=== PATIENT | female | born 1985 | race American Indian/Alaskan Native ===

== ENCOUNTER 2017-09-13 22:03 | Inpatient (IN) | payer MEDICAID ==
[2017-09-13] MEDS ORDERED: LACTATED RINGERS 1,000 ML IV ONE (22:44)
[2017-09-13 23:16] LABS: Hematocrit 31.8 % (30.3-42.9); Hemoglobin 10.5 gm/dl (10.1-14.3); Mean Corpuscular HGB Conc 33 % (30-34); Mean Corpuscular Volume 75 fl (79-97); Platelet Count 299 K/mm3 (140-440); Red Blood Count 4.24 M/mm3 (3.65-5.03); Red Cell Distribution Width 14.5 % (13.2-15.2)
[2017-09-13 23:19] LABS: Mean Corpuscular Hemoglobin 25 pg (28-32)
[2017-09-13 23:29] LABS: Bacteria,Urine 2+ /HPF (Negative); Bilirubin,Urine NEG (Negative); Blood,Urine NEG (Negative); Calcium Oxalate Crystals,Urine 1+; Color,Urine Yellow (Yellow); Mucus,Urine 2+ /HPF
[2017-09-13 23:35] LABS: Alanine Aminotransferase 8 units/L (7-56)
[2017-09-13 23:50] LABS: Uric Acid 3.5 mg/dL (3.5-7.6)
[2017-09-14] MEDS ORDERED: BRETHINE SUB-Q PRN (00:32)
[2017-09-14] MEDS ORDERED: MINERAL OIL PO PRN (00:32)
[2017-09-14] MEDS ORDERED: BRETHINE IVP PRN (00:32)
[2017-09-14] MEDS ORDERED: MAGNESIUM SULFATE 4GM/100ML 4 GM/100 ML BAG IV ONE ×2 (00:32→00:40)
[2017-09-14] MEDS ORDERED: ePHEDrine SULFATE IV PRN (00:32)
[2017-09-14] MEDS ORDERED: ZOFRAN IV PRN ×2 (00:32→10:28)
[2017-09-14] MEDS ORDERED: SUBLIMAZE IV PRN (00:32)
[2017-09-14] MEDS ORDERED: APRESOLINE IV PRN (00:32)
[2017-09-14] MEDS ORDERED: XYLOCAINE 2% INFILTRATI ONE (00:32)
--- NOTE | 2017-09-14 00:37 | History and Physical Report ---
History of Present Illness Date of examination: 09/14/17 Date of admission: 09/14/17 00:01 Chief complaint: Severe Headaches History of present illness: Pt is a 32yo BF EDC 10/17/17; EGA 35 2/7 weeks presents to L&D complaining of severe headaches and RUQ pain. On admission her BP is elevated 159/101 and she is also iraj q 3-4 mins. She received late care at [facility] since 23 weeks and course has been unremarkable except for elevated RGS with normal 3 OGTT, and previous C Section x 2. records are available and GBS was not yet done. Past History Past Medical History: no pertinent history Past Surgical History: section (x2) [employer] History: herpes, trichomonas Family/Genetic History: none Social history: no significant social history, single - Obstetrical History Expected Date of Delivery: 10/17/17 Actual Gestation: 35 Week(s) 2 Day(s) : 4 Medications and Allergies Allergies Allergy/AdvReac Type Severity Reaction Status Date / Time amoxicillin [Amoxicillin] AdvReac Rash Verified 11/28/12 02:53 Home Medications Medication Instructions Recorded Confirmed Last Taken Type Hydrocodone Bit/Acetaminophen 1 tab PO Q4-6H PRN #12 tablet 11/28/12 Unknown Rx [Lortab 5-500 Tablet] Sulfamethoxazole/Trimethoprim 1 tab PO Q12H #14 tablet 11/28/12 Unknown Rx [Bactrim Ds] Nitrofurantoin [place]/M-Cryst 100 mg PO Q12HR #20 capsule 10/21/13 Unknown Rx [Macrobid] Ondansetron [Zofran] 4 mg PO Q6HR PRN #30 tablet 10/21/13 Unknown Rx Pnv with Ca,No.72/Iron/FA 1 each PO DAILY #30 tablet 10/21/13 09/13/17 10:00 Rx [ Plus Multivitamin Tab] 1 tablet Promethazine [Phenergan] 25 mg PO Q6H PRN #20 tablet 12/15/13 Unknown Rx Butalb/Acetaminophen/Caffeine 1 cap PO Q6HR PRN #20 cap 02/02/15 Unknown Rx [Fioricet 50-300-40 mg CAP] Review of Systems All systems: negative - Vital Signs Vital signs: Vital Signs Pulse BP 90 159/101 09/13/17 22:35 09/13/17 22:35 Temp Pulse Resp BP Pulse Ox 98.7 F 87 18 163/92 99 09/13/17 22:43 09/14/17 00:38 09/13/17 22:43 09/14/17 00:22 09/14/17 00:38 - Physical Exam Breasts: Positive: deferred Cardiovascular: Regular rate Lungs: Positive: Clear to auscultation Abdomen: Positive: normal appearance, soft Genitourinary (Female): Positive: normal external genitalia Uterus: Positive: enlarged Extremities: Positive: normal - Obstetrical FHR: category 1 Uterine Contraction Monitor Mode: External Cervical Dilatation: 1 (per nurse) Cervical Effacement Percentage: 50 (per nurse) Uterine Contraction Pattern: Irregular Uterine Tone Measurement Phase: Contraction Uterine Contraction Intensity: Mild Results Result Diagrams: 09/13/17 22:45 09/13/17 22:45 Abnormal lab results 09/13/17 09/13/17 09/13/17 Range/Units 22:45 22:45 22:45 MCV 75 L (79-97) fl MCH 25 L (28-32) pg Creatinine 0.5 L (0.7-1.2) mg/dL Lactate Dehydrogenase 208 H (91-180) units/L Urine WBC (Auto) 22.0 H (0.0-6.0) /HPF U Epithel Cells (Auto) 16.0 H (0-13.0) /HPF All other labs normal. Assessment and Plan - Patient Problems (1) 35 weeks gestation of Onset Date: 09/14/17 Current Visit: Yes Status: Acute Plan to address problem: A: IUP @ 35 2/7 weeks Severe preeclampsia Previous C Section P: Admit to L&D for evaluation of Preeclampsia Will begin IV Magnesium sulfate and IV Hydralazine Will deliver by C Section if severe symptoms persists Obtain records in the morning (2) Pre-eclampsia during in third trimester, antepartum Onset Date: 09/14/17 Current Visit: Yes Status: Acute (3) Previous section Onset Date: 09/14/17 Current Visit: Yes Status: Acute
[2017-09-14] MEDS ORDERED: MAGNESIUM SULFATE 40GM/1000ML 40 GM/1,000 ML BAG IV ONE (00:40)
[2017-09-14] MEDS: LACTATED RINGERS 1,000 ML IV SCH ×3 (01:00→08:31)
[2017-09-14] MEDS ORDERED: PITOCin/NS 30 UNIT/500ML 30 UNITS/500 ML BAG IV SCH (01:00)
[2017-09-14] MEDS ORDERED: PITOCin/NS 20 UNIT/1000ML DRIP 20 UNITS/1,000 ML BAG IV SCH ×3 (01:00→13:00)
[2017-09-14] MEDS: MAGNESIUM SULFATE 40GM/1000ML 40 GM/1,000 ML BAG IV SCH (01:41)
[2017-09-14] MEDS ORDERED: TYLENOL PO ONE (05:05)
[2017-09-14] MEDS ORDERED: REGLAN IV ONE (08:45)
[2017-09-14] MEDS ORDERED: BICITRA PO ONE (08:45)
[2017-09-14] MEDS ORDERED: PEPCID IV ONE (08:45)
[2017-09-14] MEDS ORDERED: GARAMYCIN 120 MG in NACL 0.9% 100 ML IV SCH (08:45)
[2017-09-14] MEDS ORDERED: LACTATED RINGERS 1,000 ML IV SCH (09:00)
[2017-09-14] MEDS ORDERED: CLEOCIN 600 MG/50 mL 600 MG/50 ML BAG IV NR (09:00)
[2017-09-14 09:35] LABS: Alanine Aminotransferase 8 units/L (7-56)
[2017-09-14] MEDS ORDERED: PHENERGAN PR PRN (10:28)
[2017-09-14] MEDS ORDERED: NARCAN 0.4 MG/1 ML IV PRN ×2 (10:28→12:36)
[2017-09-14] MEDS ORDERED: PHENERGAN PO PRN (10:28)
--- NOTE | 2017-09-14 10:28 | Anesthesia Consultation ---
Anesthesia Consult and Med Hx Date of service: 09/14/17 - Airway Anesthetic Teeth Evaluation: Good ROM Head & Neck: Adequate Mental/Hyoid Distance: Adequate Mallampati Class: Class II Intubation Access Assessment: Good - Pulmonary Exam CTA: Yes - Cardiac Exam Cardiac Exam: RRR - Pre-Operative Health Status ASA Pre-Surgery Classification: ASA3 - Pulmonary Hx Asthma: Yes - Cardiovascular System Hx Hypertension: Yes - Central Nervous System Hx Seizures: No Hx Psychiatric Problems: No - Endocrine Hx Renal Disease: No Hx Hypothyroidism: No Hx Hyperthyroidism: No - Hematic Hx Anemia: No Hx Sickle Cell Disease: No - Other Systems Hx Alcohol Use: No - Additional Comments Anesthesia Medical History Comments: Preeclampsia
[2017-09-14] MEDS ORDERED: NACL 0.9% IR ONE (10:35)
[2017-09-14] MEDS ORDERED: WATER FOR IRRIG STERILE IR ONE (10:35)
[2017-09-14] MEDS ORDERED: MORPHINE ONE (10:45)
[2017-09-14] MEDS ORDERED: GARAMYCIN/NS 120MG/100ML 120 MG/100 ML BAG IV ONE (11:00)
[2017-09-14] MEDS ORDERED: fentaNYL-BUPIV 2 MCG/ML-0.125% 200 MCG/100 ML BAG EPIDURAL SCH (11:00)
[2017-09-14] MEDS ORDERED: SODIUM CHLORIDE FLUSH SYRINGE 10 ML IV NR ×2 (11:00→13:00)
[2017-09-14] MEDS ORDERED: TORADOL ONE (11:11)
--- NOTE | 2017-09-14 12:31 | Operative Report ---
Operative Report Operative Report: Date of procedure: 09/14/2017 Pre-operative diagnosis: 1. Intrauterine at 35-2/7 weeks 2. Severe preeclampsia 3. Previous 2 4. contractions 5. Desires permanent sterilization Post-operative diagnosis: Same with extensive lower uterine adhesions Procedure name(s): 1. Repeat low transverse section 2. Bilateral tubal ligation Surgeon: Osman Salas MD Nurse Prn: None Anesthesia: Spinal anesthesia by Dr. Wilde EBL: 800 mls Findings: A 2655 g male Apgars 8 at 1 minute and 8 at 5 minutes. Clear amniotic fluid. Normal uterus with extensive lower uterine adhesions. Normal tubes and ovaries bilaterally. Procedure: After the patient was prepped and draped in usual sterile fashion, and after satisfactory level of epidural anesthesia was obtained, the skin knife was used to make a transverse skin incision through the previous skin scar. The incision was excised down to layer of the fascia, which was nicked in the midline and extended laterally using the Bovie cautery. The rectus muscles were dissected off the rectus fascia both superiorly and inferiorly. The rectus bellies in the midline, and the peritoneum was entered under direct visualization. The peritoneal incision was extended superiorly and inferiorly. Extensive lower uterine adhesions were taken down using both sharp and blunt dissection. A bladder flap was created and the bladder blade was then placed. The uterus was scored in a curvilinear linear fashion, entered in the midline revealing clear amniotic fluid. The infant's head was delivered onto the surgical field, and the oropharynx and nasopharynx were bulb suctioned. The rest of the 's body was delivered, cord was doubly clamped and cut and the was handed to the waiting respiratory team. Cord blood was then obtained. The placenta was manually removed from the uterus , and the uterus removed from its normal anatomical position. After gentle uterine lavage, the incision was inspected and found to be without extensions. It was then closed in 2 layers using 0 Vicryl suture in a running interlocking fashion, the second layer imbricating the first. Attention was then turned to the tubal ligation. First the right fallopian tube was grasped using a [place] and the Fil[place]ie clip was applied to the proximal portion of the tube. The same procedure was performed on the left fallopian tube. The left fallopian tube was grasped using a [place] and the Filshie clip was applied to the proximal portion of the tube. After good hemostasis was achieved, copious amounts or irrigation was performed, and the gutters were suctioned free of blood and blood clots. The Tisseel sealant was sprayed across the uterine incision. The uterus was then returned to its normal anatomical position, and after excellent hemostasis assured, the peritoneum was re-approximated using 3-0 Vicryl suture in a running interlocking fashion, and then the rectus muscles were re- approximated using 3-0 Vicryl suture in a vconur-af-hatid configuration. The fascia was then re-approximated using 0 Vicryl suture in running interlocking fashion. The subcutaneous layer was made hemostatic using Bovie cautery, the Tisseel sealant was sprayed across the fascial incision and the skin edges re- approximated using 4-0 Vicryl suture in a sub-cuticular fashion. Patient tolerated the procedure well was transported to recovery in stable condition.
[2017-09-14] MEDS ORDERED: TUCKS PAD TP PRN (12:36)
[2017-09-14] MEDS ORDERED: NORCO 5/325 PO PRN (12:36)
[2017-09-14] MEDS ORDERED: LANSINOH TP PRN (12:36)
[2017-09-14] MEDS ORDERED: MYLICON PO PRN (12:36)
[2017-09-14] MEDS ORDERED: SENOKOT PO PRN (12:36)
[2017-09-14] MEDS ORDERED: TORADOL IV PRN (12:36)
[2017-09-14] MEDS ORDERED: MILK OF MAGNESIA PO PRN (12:36)
[2017-09-14] MEDS: BENADRYL IV PRN (12:44)
[2017-09-14] MEDS ORDERED: D5LR 1,000 ML IV SCH (13:00)
[2017-09-14] MEDS: CLEOCIN 600 MG/50 mL 600 MG/50 ML BAG IV SCH (16:44)
[2017-09-15 00:55] LABS: Hematocrit 26.7 % (30.3-42.9); Hemoglobin 9.1 gm/dl (10.1-14.3)
[2017-09-15] MEDS: BENADRYL IV PRN (00:55)
[2017-09-15] MEDS: MAGNESIUM SULFATE 40GM/1000ML 40 GM/1,000 ML BAG IV SCH (00:57)
[2017-09-15] MEDS: CLEOCIN 600 MG/50 mL 600 MG/50 ML BAG IV SCH (00:58)
--- NOTE | 2017-09-15 11:24 | Progress Note ---
Assessment and Plan - Patient Problems (1) 35 weeks gestation of Onset Date: 09/14/17 Current Visit: Yes Status: Resolved (2) Pre-eclampsia during in third trimester, antepartum Onset Date: 09/14/17 Current Visit: Yes Status: Resolved (3) Previous section Onset Date: 09/14/17 Current Visit: Yes Status: Resolved (4) Status post Onset Date: 09/15/17 Current Visit: Yes Status: Resolved Plan to address problem: A: S/P Repeat C Section with BTL - POD #1 Doing well Preeclampsia - improved - still on IV Magnesium sulfate P: Continue RPOC Will D/C IV Magnesium sulfate and begin PO Labetolol Anticipate discharge in 24-48hrs Subjective - Subjective Date of service: 09/15/17 Principal diagnosis: s/p Repeat C Section with BTL - POD #1 Interval history: Pt is feeling better with only a slight headache. Bleeding improved. Still on IV Magnesium sulfate. Patient reports: appetite normal, voiding normally, pain well controlled, no flatus, no ambulating normally, no nauseated : doing well, nursing well, bottle feeding Objective - Vital Signs Latest vital signs: Vital Signs Temp Pulse Resp BP BP Pulse Ox 09/15/17 10:22 133/88 09/15/17 07:51 98.1 F 90 14 144/96 96 09/15/17 06:10 98.0 F 82 20 136/84 09/15/17 04:00 98.2 F 87 20 133/86 09/15/17 02:30 98.6 F 76 20 138/83 09/15/17 00:50 98 H 17 134/64 98 09/15/17 00:40 89 20 121/76 99 09/15/17 00:30 100 H 18 129/70 100 09/15/17 00:20 102 H 24 131/75 99 09/15/17 00:10 102 H 22 133/70 100 09/15/17 00:00 98.2 F 95 H 22 125/73 138/87 100 09/14/17 23:53 103 H 09/14/17 20:00 98.2 F 100 H 20 132/82 09/14/17 15:14 98.6 F 91 H 16 131/87 100 09/14/17 13:56 97.4 F L 85 16 136/93 100 09/14/17 13:20 82 15 143/80 99 09/14/17 13:15 79 22 142/88 100 09/14/17 13:10 84 16 145/85 97 09/14/17 13:05 85 21 135/83 100 09/14/17 13:00 79 13 138/86 99 09/14/17 12:56 90 12 138/87 99 09/14/17 12:55 97.8 F 86 12 138/87 09/14/17 12:50 82 14 133/89 100 09/14/17 12:45 79 14 139/89 99 09/14/17 12:40 84 16 130/84 09/14/17 12:35 76 25 H 128/83 100 09/14/17 12:30 77 29 H 123/83 100 09/14/17 12:24 30 H 121/85 82 L 09/14/17 12:18 77 20 128/84 100 09/14/17 12:12 87 26 H 112/73 100 Intake and Output 09/14/17 09/15/17 09/15/17 22:59 06:59 14:59 Intake Total 1050 240 Output Total 700 1600 Balance 350 -1360 Intake: IV 1050 CLEOCIN 600 MG/50 mL 600 50 mg In 50 ml @ 100 mls/hr IV Q8H ROMEO Rx#:[id number] MAGNESIUM SULFATE 40GM/ 1000 1000ML 40 gm In 1,000 ml @ 2 GM/HR 50 mls/hr IV DIRECT ROMEO Rx#:[id number] Oral 240 Output: Urine 700 1600 Indwelling Catheter 700 1600 Other: Total, Intake Amount 240 Total, Output Amount 700 800 - Exam Breasts: Present: deferred Cardiovascular: Present: Regular rate Abdomen: Present: normal appearance, soft Uterus: Present: normal, firm, fundal height below umbilicus Extremities: Present: normal Incision: Present: normal, dry, intact, dressed - Labs Labs: Abnormal lab results 09/14/17 09/15/17 09/15/17 Range/Units 20:29 00:24 00:24 Hgb 9.1 L (10.1-14.3) gm/dl Hct 26.7 L (30.3-42.9) % Magnesium 5.40 H 5.60 H (1.7-2.3) mg/dL 09/15/17 Range/Units 07:35 Hgb (10.1-14.3) gm/dl Hct (30.3-42.9) % Magnesium 5.70 H (1.7-2.3) mg/dL Laboratory Tests 09/13/17 09/13/17 09/13/17 22:45 22:45 22:45 WBC 6.9 RBC 4.24 Hgb 10.5 Hct 31.8 MCV 75 L MCH 25 L MCHC 33 RDW 14.5 Plt Count 299 Creatinine 0.5 L Estimated GFR > 60 Uric Acid 3.5 Magnesium AST 15 ALT 8 Lactate Dehydrogenase 208 H Urine Color Yellow Urine Turbidity Slightly-cloudy Urine pH 6.0 Ur Specific [place] 1.016 Urine Protein 30 mg/dl Urine Glucose (UA) Neg Urine Ketones Neg Urine Blood Neg Urine Nitrite Neg Urine Bilirubin Neg Urine Urobilinogen 2.0 Ur Leukocyte Esterase Sm Urine WBC (Auto) 22.0 H Urine RBC (Auto) 5.0 U Epithel Cells (Auto) 16.0 H Urine Bacteria (Auto) 2+ Calcium Oxalate Crystal 1+ Urine Mucus 2+ RPR Blood Type Antibody Screen 09/13/17 09/13/17 09/14/17 22:45 22:45 08:40 WBC RBC Hgb Hct MCV MCH MCHC RDW Plt Count Creatinine Estimated GFR Uric Acid Magnesium AST 15 ALT 8 Lactate Dehydrogenase Urine Color Urine Turbidity Urine pH Ur Specific [place] Urine Protein Urine Glucose (UA) Urine Ketones Urine Blood Urine Nitrite Urine Bilirubin Urine Urobilinogen Ur Leukocyte Esterase Urine WBC (Auto) Urine RBC (Auto) U Epithel Cells (Auto) Urine Bacteria (Auto) Calcium Oxalate Crystal Urine Mucus RPR Nonreactive Blood Type O POSITIVE Antibody Screen Negative 09/14/17 09/15/17 09/15/17 20:29 00:24 00:24 WBC RBC Hgb 9.1 L Hct 26.7 L MCV MCH MCHC RDW Plt Count Creatinine Estimated GFR Uric Acid Magnesium 5.40 H 5.60 H AST ALT Lactate Dehydrogenase Urine Color Urine Turbidity Urine pH Ur Specific [place] Urine Protein Urine Glucose (UA) Urine Ketones Urine Blood Urine Nitrite Urine Bilirubin Urine Urobilinogen Ur Leukocyte Esterase Urine WBC (Auto) Urine RBC (Auto) U Epithel Cells (Auto) Urine Bacteria (Auto) Calcium Oxalate Crystal Urine Mucus RPR Blood Type Antibody Screen 09/15/17 07:35 WBC RBC Hgb Hct MCV MCH MCHC RDW Plt Count Creatinine Estimated GFR Uric Acid Magnesium 5.70 H AST ALT Lactate Dehydrogenase Urine Color Urine Turbidity Urine pH Ur Specific [place] Urine Protein Urine Glucose (UA) Urine Ketones Urine Blood Urine Nitrite Urine Bilirubin Urine Urobilinogen Ur Leukocyte Esterase Urine WBC (Auto) Urine RBC (Auto) U Epithel Cells (Auto) Urine Bacteria (Auto) Calcium Oxalate Crystal Urine Mucus RPR Blood Type Antibody Screen
[2017-09-15] MEDS ORDERED: BOOSTRIX IM ONE (12:39)
[2017-09-15] MEDS ORDERED: M-M-R II VACCINE SUB-Q ONE (12:39)
[2017-09-15] MEDS: FEOSOL PO SCH (14:41)
[2017-09-15] MEDS: PERCOCET 5/325 PO PRN (14:41)
[2017-09-15] MEDS: NORMODYNE PO SCH ×2 (14:41→22:12)
[2017-09-15] MEDS: PRENATAL VITAMIN PO SCH (14:41)
[2017-09-15] MEDS: MOTRIN PO PRN (14:41)
[2017-09-16] MEDS: MOTRIN PO PRN ×3 (02:27→18:28)
[2017-09-16] MEDS: PERCOCET 5/325 PO PRN (02:28)
[2017-09-16] MEDS: PRENATAL VITAMIN PO SCH (10:36)
[2017-09-16] MEDS: FEOSOL PO SCH (10:36)
[2017-09-16] MEDS: NORMODYNE PO SCH ×2 (10:37→21:07)
--- NOTE | 2017-09-16 10:49 | Progress Note ---
Assessment and Plan - Patient Problems (1) 35 weeks gestation of Onset Date: 09/14/17 Current Visit: Yes Status: Resolved (2) Pre-eclampsia during in third trimester, antepartum Onset Date: 09/14/17 Current Visit: Yes Status: Resolved (3) Previous section Onset Date: 09/14/17 Current Visit: Yes Status: Resolved (4) Status post Onset Date: 09/15/17 Current Visit: Yes Status: Resolved Plan to address problem: A: S/P Repeat C Section with BTL - POD #2 Doing well Preeclampsia - improved - on Labetolol 100mg BID P: Continue RPOC Will D/C home today on PO Labetolol Follow up in office for BP check in 1 week Subjective - Subjective Date of service: 09/16/17 Principal diagnosis: s/p Repeat C Section with BTL - POD #2 Interval history: Pt is feeling well without complaints. She is tolerating a reg diet without nausea or vomiting, ambulating and voiding without difficulty. Patient reports: appetite normal, voiding normally, pain well controlled, flatus , ambulating normally, no dizzy ambulation, no nauseated [place]: doing well, nursing well, bottle feeding Objective - Vital Signs Latest vital signs: Vital Signs Temp Pulse Resp BP BP Pulse Ox 09/16/17 10:37 72 124/76 09/16/17 06:00 98.0 F 84 18 117/72 09/16/17 00:38 98.4 F 94 H 20 114/64 09/15/17 22:12 99 H 135/90 09/15/17 21:15 98.4 F 99 H 16 135/90 09/15/17 15:46 98.2 F 77 16 125/84 96 09/15/17 14:41 131/88 Intake and Output 09/15/17 09/16/17 09/16/17 22:59 06:59 14:59 Intake Total 240 360 Output Total 100 Balance 240 260 Intake: Intake, Free Water 240 360 Output: Urine 100 Void 100 Other: Total, Output Amount 100 # Voids Void 1 1 - Exam Breasts: Present: deferred Cardiovascular: Present: Regular rate Lungs: Present: Clear to auscultation Abdomen: Present: normal appearance, soft Uterus: Present: normal, firm, fundal height below umbilicus Extremities: Present: normal Incision: Present: normal, dry, intact
--- NOTE | 2017-09-16 15:23 | Discharge Summary ---
Providers - Providers Date of Admission: 09/14/17 00:01 Date of discharge: 09/16/17 Attending physician: CHARLES ORTA Primary care physician: CHARLES ORTA Hospitalization Reason for admission: IUP - , section, labor, other ( Severe preeclampsia) Delivery: Procedure: section, bilateral tubal ligation, repeat low transverse Laceration: none Incision: normal, dry, intact Other procedures: none complications: none Discharge diagnosis: delivery baby: male Hospital course: Pt is a 32yo BF EDC 10/17/17; EGA 35 2/7 weeks who presented to L&D complaining of severe headaches and RUQ pain. On admission her BP is elevated 159/101 and she is also iraj q 3-4 mins. She had a history of previous C Section x 2 and BP's remained elevated despite IV Magnesium sulfate, IV Hydralazine and IV Labetolol with worsening symptoms. She underwent an uncomplicated Repeat C Section with BTL and tolerated the procedure well. By POD #2 she was tolerating a reg diet without nausea or vomiting, ambulating and voiding without difficulty, and headaches and RUQ pain had resolved. She was therefore discharged to home on POD #2 in stable condition and BP's controlled on PO Labetolol 100mg BID. She will follow up in the office in 1 week for BP check. Condition at discharge: Good Disposition: DC-01 TO HOME OR SELFCARE - Discharge Diagnoses (1) 35 weeks gestation of Status: Resolved (2) Pre-eclampsia during in third trimester, antepartum Status: Resolved (3) Previous section Status: Resolved (4) Status post Status: Resolved Plan - Discharge Medications Prescriptions: Ferrous Sulfate [Feosol 325 MG tab] 325 mg PO BID #60 tablet HYDROcodone/APAP 5-325 [[place] 5/325] 1 each PO Q6HR PRN #30 tablet PRN Reason: Pain Ibuprofen [Motrin] 800 mg PO Q8HR PRN #30 tablet PRN Reason: Moder Pain Unrelieved By [place] Labetalol [Normodyne TAB] 100 mg PO BID #60 tablet Vit Calc,Iron,Folic [ Vitamins] 1 each PO DAILY #30 tablet - Provider Discharge Summary Activity: routine, no sex for 6 weeks, no heavy lifting 4 weeks, no strenuous exercise Diet: routine Instructions: routine Additional instructions: [] Smoking cessation referral if applicable(refer to patient education folder for contact #) [] Refer to [facility]'s [facility] Booklet Call your doctor immediately for: * Fever > 100.5 * Heavy vaginal bleeding ( >1 pad per hour) * Severe persistent headache * Shortness of breath * Reddened, hot, painful area to leg or breast * Drainage or odor from incision. * Keep incision clean and dry at all times and follow doctor's instructions regarding bathing/showering Follow up in office in 1 week for BP check - Follow up plan Follow up: CAHRLES ORTA MD [Primary Care Provider] - 7 Days
[2017-09-16 22:24] VITALS: BP 154/90
== END 2017-09-16 21:30 | disposition home or self-care (01) | DRG 765 ==
LOC: TRG 22:03 → LD 09-14 00:01 → OB 09-14 14:11
PROVIDERS: ADMIT Obstetrics & Gynecology; ATTEND Obstetrics & Gynecology
PROC: 10D00Z1 Extraction of Products of Conception, Low, Open Approach (ICD-10-PCS; principal; 2017-09-14)
PROC: 0UL70CZ Occlusion of Bilateral Fallopian Tubes with Extraluminal Device, Open Approach (ICD-10-PCS; 2017-09-14)
PROC: 3E0234Z Introduction of Serum, Toxoid and Vaccine into Muscle, Percutaneous Approach (ICD-10-PCS; 2017-09-15)
PROC: 3E0134Z Introduction of Serum, Toxoid and Vaccine into Subcutaneous Tissue, Percutaneous Approach (ICD-10-PCS; 2017-09-15)
DX: O34.211 Maternal care for low transverse scar from previous cesarean delivery (principal); O14.13 Severe pre-eclampsia, third trimester; O60.14X0 Preterm labor third trimester with preterm delivery third trimester, not applicable or unspecified; Z3A.35 35 weeks gestation of pregnancy; Z37.0 Single live birth; Z23 Encounter for immunization; Z88.0 Allergy status to penicillin; Z30.2 Encounter for sterilization; O98.32 Other infections with a predominantly sexual mode of transmission complicating childbirth; A60.00 Herpesviral infection of urogenital system, unspecified
CPT/HCPCS: 36415; 81001; 82565; 83615; 83735; 84450; 84460; 84550; 85014; 85018; 85027; 86592; 86850; 86900; 86901; 99211; C9250; G0463; J1200; J1580; J1885; J2270; J2405; J2590; J2765; J3010; J3475; J7120; J7121